=== PATIENT | female | born 1995 | race Caucasian/White ===

== ENCOUNTER → 2019-05-26 | Day surgery (SDC) | payer BC ==
[2019-05-20 11:53] LABS: BASOPHILS % 0.4 % (0.0-1.0); EOSINOPHILS # (AUTO) 0.2 (0.0-0.4); HEMOGLOBIN 12.2 g/dL (12.0-16.0); LYMPHOCYTES # (AUTO) 2.3 (1.0-3.2); MEAN CORPUSCULAR HEMOGLOBIN 31.3 pg (28-32); MEAN CORPUSCULAR HGB CONC 33.9 g/dL (31-35); MEAN CORPUSCULAR VOLUME 92.3 fL (81-99); MONOCYTES # (AUTO) 0.6 (0.2-0.8); MONOCYTES % 8.2 % (4.4-11.3); NEUTROPHILS # (AUTO) 4.1 (2.1-6.9); PLATELET COUNT 242 x10e3/uL (140-360); RED CELL DISTRIBUTION WIDTH 13.2 % (11.7-14.4)
[2019-05-20 11:55] LABS: BILIRUBIN,URINE NEGATIVE (NEGATIVE); CLARITY,URINE CLEAR (CLEAR); COLOR,URINE YELLOW (YELLOW); KETONES,URINE NEGATIVE (NEGATIVE); LEUKOCYTE ESTERASE ,URINE NEGATIVE (NEGATIVE); NITRITE,URINE NEGATIVE (NEGATIVE); PROTEIN,URINE DIPSTICK NEGATIVE (NEGATIVE); URINE UROBILINOGEN 0.2 mg/dL (0.2 - 1)
[2019-05-20 12:15] LABS: ALANINE AMINOTRANSFERASE 17 IU/L (0-55); ALBUMIN 4.4 g/dL (3.5-5.0); ALBUMIN/GLOBULIN RATIO 1.3 (0.8-2.0); ALKALINE PHOSPHATASE 37 IU/L (40-150); ANION GAP 12.5 mmol/L (8-16); BLOOD UREA NITROGEN 13 mg/dL (7-26); BUN/CREATININE RATIO 21 (6-25); CALCIUM 9.5 mg/dL (8.4-10.2); CARBON DIOXIDE 27 mmol/L (22-29); CHLORIDE 102 mmol/L (98-107); CREATININE, SERUM 0.63 mg/dL (0.57-1.11); EST GLOMERULAR FILTRATION RATE > 60 ML/MIN (60-); GLUCOSE 78 mg/dL (74-118); POTASSIUM 3.5 mmol/L (3.5-5.1); SODIUM 138 mmol/L (136-145)
[~2019-05-26] MED LIST: ACETAMINOPHEN 1000 MG/100 ML IV ONE; BUPIVACAINE 0.25%/EPI 30ML SDV INJ ONE; DEXAMETHASONE SOD PHOS INJ 4 MG/ML VIAL ONE; FENTANYL CITRATE/PF 100MCG/2 ML INJ ONE; HYDROGEN PEROXIDE 120 ML BTL ONE; KETOROLAC TROMETHAMINE 30 MG/ML VIAL ONE; LEVOTHYROXINE88 MCG PO; LIDOCAINE HCL 2% LOCAL INJ 5 ML SDV VIAL INJ ONE; MEPERIDINE HCL INJ 25 MG/ML VIAL ONE; MIDAZOLAM HCL 2 MG/2 ML VIAL ONE; ONDANSETRON HCL INJ 2MG/ML 2ML 2 MG/ML VIAL ONE; PANTOPRAZOLE SO40 MG PO; PROPOFOL IV EMULSION 10 MG/ML 20 ML VIAL ONE; ROCURONIUM BROMIDE 10 MG/ML 5ML VIAL ONE; SEVOFLURANE INHAL SOLN 250 ML PEN BTL ONE
--- OUTSIDE RECORDS SUMMARY | 2019-05-26 08:22 | XMS REPORT | Clinical Summary ---
Author Author [facility] Organization [facility] Address Unknown Phone Unavailable Care Team Providers Care [employer] Professor Name Role Phone LeRolo martinez Douglas MONKEY KEEPER PCP Allergies Comments Active Allergy Reactions Severity Noted Date Penicillins Medications End Date Status Medication Sig Dispensed Refills Start Date Active levothyroxine (SYNTHROID, 0 LEVOXYL) 88 mcg tablet 9 Active pantoprazole (PROTONIX) Take 40 mg by 0 40 MG EC tablet mouth daily. Active Problems Problem Noted Date Gastroesophageal reflux disease 03/04/2019 Overview: Added automatically from request for surgery [id number] Encounters Care Team Description Date Type Specialty Tamara Braxton MD Abdominal pain, unspecified abdominal location (Primary Dx) 04/21/2019 Transcribe Access Orders Tamara Braxton MD Epigastric pain (Primary Dx); Heartburn; Chronic GERD 03/31/2019 Transcribe Access Orders Zander Fisher MD Gastroesophageal reflux disease, esophagitis presence not specified (Primary Dx) 03/04/2019 Office Visit Gastroenterology Elvie Hernandez MA EGD/COLON PREP INSTRUCTIONS; PROCEDURE CANCELLATION 03/04/2019 Documentation Gastroenterology Elvie Hernandez MA Gastroesophageal reflux disease, esophagitis presence not specified (Primary Dx) 03/04/2019 Prep for Gastroenterology Surgery after 05/25/2018 Family History Medical History Relation Name Comments No Known Problems Father Thyroid disease Mother Relation Name Status Comments Father Alive Mother Alive Social History Date Tobacco Use Types Packs/Day Years Used Never Smoker Smokeless Tobacco: Never Used Alcohol Use Drinks/Week oz/Week Comments Yes OCC Sex Assigned at Date Recorded Not on file Industry Job Start Date Occupation Not on file Not on file Not on file Travel End Travel History Travel Start No recent travel history available. Last Filed Vital Signs Time Taken Vital Sign Reading 03/04/2019 8:31 AM CDT Blood Pressure 110/72 03/04/2019 8:31 AM CDT Pulse 76 03/04/2019 8:31 AM CDT Temperature 36.7 C (98.1 F) 03/04/2019 8:31 AM CDT Respiratory Rate 12 - Oxygen Saturation - - Inhaled Oxygen - Concentration 03/04/2019 8:31 AM CDT Weight 51.5 kg (113 lb 9.6 oz) 03/04/2019 8:31 AM CDT Height 149.9 cm (4' 11") 03/04/2019 8:31 AM CDT Body Mass Index 22.94 Plan of Treatment Health Maintenance Due Date Last Done Comments INFLUENZA VACCINE 05/29/2019 Procedures Comments Procedure Name Priority Date/Time Associated Diagnosis US GALLBLADDER Routine 04/14/2019 Epigastric pain 10:36 AM CDT Heartburn Chronic GERD after 05/25/2018 Results * US Gallbladder (04/14/2019 10:36 AM CDT) Specimen Narrative Performed At EXAMINATION:US GALLBLADDER [facility] CLINICAL HISTORY:R10.13 Epigastric pain, R12 Heartburn, Epigastric painsevere heartburnGERD COMPARISON:None. FINDINGS: Gallbladder: Gallbladder contains sludge and stones. Wall is not thickened, and there is no pericholecystic fluid CBD:4 mm , within normal limits. Portal vein: The portal vein demonstrates normal hepatopetal flow. The portal vein measures 8 mm. IMPRESSION: Cholelithiasis without sonographic evidence of cholecystitis. [id number] Procedure Note Interface, Radiology Results [facility] - 04/14/2019 10:42 AM CDT EXAMINATION: US GALLBLADDER CLINICAL HISTORY: R10.13 Epigastric pain, R12 Heartburn, Epigastric pain severe heartburn GERD COMPARISON: None. FINDINGS: Gallbladder: Gallbladder contains sludge and stones. Wall is not thickened, and there is no pericholecystic fluid CBD: 4 mm , within normal limits. Portal vein: The portal vein demonstrates normal hepatopetal flow. The portal vein measures 8 mm. IMPRESSION: Cholelithiasis without sonographic evidence of cholecystitis. [id number] Performing Organization Address City/State/Zipcode Phone Number [facility] [address] [place] [address] after 05/25/2018 Insurance Type Payer Benefit Subscriber ID Effective Phone Address Plan / Dates Group PPO BCBS BCBS xxxxxxxxxxxx 2018 CHOICE -Present PPO/CHRI[employer] PPO Advance Directives Patient has advance care planning documents on file. For more information, sandhya gillis contact: Chago Collado [address] [place] [address]
[2019-05-26 12:55] VITALS: BP 110/71
--- NOTE | 2019-05-26 13:35 | Operative Report ---
DATE OF PROCEDURE: 05/26/2019 SURGEON: Deangelo Armstrong MD PREOPERATIVE DIAGNOSES: Cholelithiasis, biliary colic, chronic cholecystitis. POSTOPERATIVE DIAGNOSES: Cholelithiasis, biliary colic, chronic cholecystitis. PROCEDURE PERFORMED: Laparoscopic cholecystectomy. ANESTHESIA: General endotracheal. ESTIMATED BLOOD LOSS: Minimal. DRAINS: None. COMPLICATIONS: None. INDICATIONS AND FINDINGS: The patient is an anxious 24-year-old female, who has been having upper abdominal pain for two years. She had been treated for gastritis without resolution of the symptoms. She had ultrasound of the gallbladder revealed gallstones, no ductal dilatation. Liver chemistries were normal. She had a history of intraoperative findings were evidence of thickening chronic gallbladder with omental adhesion, adhesions of the stomach to the gallbladder. There were several large stones and the bile was very thick and inspissated. The cystic duct was short and it was not dilated nor was the common bile duct. DESCRIPTION OF PROCEDURE: With the patient lying on the operative table in the supine position after administration of general anesthesia, she was prepped and draped for laparoscopic cholecystectomy. The procedure was begun by establishing the pneumoperitoneum in the umbilical site after stab wound was made in that location and a saline drop test was performed and pneumoperitoneum was insufflated to 15 mm of pressure. Then, the 10/11 trocar placed in that location. The patient rotated to the left with the head up and a 10 mm subxiphoid port was placed. Finally, two lateral working ports 5 mm each were placed. The gallbladder was very long with thickened wall adherent to the stoma. Adhesions were lysed. The gallbladder was exposed. There was large stone in the neck of the gallbladder that was milked backwards then we began the dissection after putting the gallbladder in traction with two 5 mm trocars and began the dissection high in the neck until we identified the cystic duct junction with the common bile duct was seen, the cystic artery identified and then we transected those structures between titanium clips and then took the gallbladder down from the liver bed using electrocautery dissection. The gallbladder was detached and removed through the umbilical port. The right upper quadrant was inspected, the gallbladder fossa was seen and irrigated. There was no bile leak, no bleeding, and no apparent bowel injury. At that point, we released the pneumoperitoneum and closed the wound using 0-Vicryl for the umbilical fascia and 3-0 Vicryl for the subcutaneous tissue in that location as well as subxiphoid port and the skin of all the ports was closed with barrie. Marcaine 0.25% with epinephrine was given as local block at the end of the case. The patient tolerated the procedure well, taken to the recovery room in stable condition. MD CARL Joseph/THIAGO /[id number]
== END | disposition home or self-care (01) ==
LOC: OR 08:13
PROVIDERS: ATTEND Surgery
DX: K80.10 Calculus of gallbladder with chronic cholecystitis without obstruction (principal); K82.8 Other specified diseases of gallbladder; E03.9 Hypothyroidism, unspecified; K21.9 Gastro-esophageal reflux disease without esophagitis; Z88.0 Allergy status to penicillin
CPT/HCPCS: 36415; 80053; 81003; 81025; 85025; 88304; C1766; J1100; J1885; J2001; J2175; J2250; J2405; J3010